=== PATIENT | male | born 1965 | race Caucasian/White ===

== ENCOUNTER 2017-09-27 05:26 | Emergency (ER) | payer OTHER ==
[~2017-09-27] VITALS: Ht 167.6 cm; Wt 59.0 kg
[~2017-09-27 05:26] MED LIST: ALBU90OI6 INH; AMOCLA500 PO; CEPH500 PO; CLON.1 PO; CLOT1TC TOP; DIAZ5 PO; DIPHENHYDRAMINE 25 MG; DULO30 PO; DULO60; ERGO50000 PO; FLUSAL1005 INH; GABA100 PO; GABA600 PO; HYDACE5 PO; IBUP800 PO; OMEP20ER PO; OXYACE5T PO; PANT20 PO; PRED10 PO; Prednisone20 MG PO; Robaxin-750750 MG PO; SULTRIDS PO; TIOT18 INH; TRAM50 PO; Ultram50 MG PO
[2017-09-27 06:16] LABS: BASOPHILS ABSOLUTE AUTO 0.11 K/mm3 (0.00-0.23); BASOPHILS PERCENT AUTO 0 % (0-2); EOSINOPHILS ABSOLUTE AUTO 0.01 K/mm3 (0.00-0.68); EOSINOPHILS PERCENT AUTO 0 % (0-6); Hematocrit 46.7 % (37.0-53.0); Hemoglobin 16.3 g/dL (13.5-17.5); IMMATURE GRAN ABSOLUTE AUTO 0.22 K/mm3 (0.00-0.10); IMMATURE GRAN PERCENT AUTO 1 % (0-1); LYMPHOCYTES ABSOLUTE AUTO 0.45 K/mm3 (0.84-5.20); LYMPHOCYTES PERCENT AUTO 2 % (21-46); MONOCYTES ABSOLUTE AUTO 1.36 K/mm3 (0.16-1.47); MONOCYTES PERCENT AUTO 5 % (4-13); Mean Corpuscular HGB Conc 34.9 g/dL (31.5-36.5); Mean Corpuscular Volume 97 fL (80-100); Mean Platelet Volume 9.3 fL (9.1-12.4); NEUTROPHILS ABSOLUTE AUTO 24.72 K/mm3 (1.96-9.15); NEUTROPHILS PERCENT AUTO 92 % (41-73); Platelet Count 217 K/mm3 (150-400); RDW Coefficient Variation 11.8 % (11.7-14.2); RDW Standard Deviation 42.7 fL (35.1-46.3); White Blood Cell Count 26.87 K/mm3 (4.00-11.30)
[2017-09-27 06:36] LABS: Alanine Aminotransfer (ALT/SGP 94 U/L (12-78); Albumin, Blood 3.2 g/dL (3.4-5.0); Albumin/Globulin Ratio 0.7 (0.8-1.8); Alk Phos 84 U/L (50-136); Anion Gap 12 mmol/L (6-16); Aspartate Aminotrans (AST/SGOT 95 U/L (12-37); Bilirubin, Total 0.8 mg/dL (0.1-1.0); Blood Urea Nitrogen 5 mg/dL (8-24); Bun/Creatinine Ratio 10.7 (12.0-20.0); CO2, Blood 25 mmol/L (21-32); Calcium, Blood 8.9 mg/dL (8.5-10.1); Chloride, Blood 92 mmol/L (98-108); Creatinine, Blood 0.47 mg/dL (0.60-1.20); Globulin, Blood 4.6 g/dL (2.2-4.0); Glomerular Filtration Rate >60 (60-); Glucose, Blood 88 mg/dL (70-99); Sodium, Blood 129 mmol/L (136-145); Total Protein, Blood 7.8 g/dL (6.4-8.2); Troponin I <0.015 ng/mL (0.000-0.040)
[2017-09-27] MEDS ORDERED: Zithromax250 MG PO (10:15)
== END 2017-09-27 10:38 | disposition home or self-care (01) ==
LOC: ER 05:26
PROVIDERS: Internal Medicine
DX: J44.0 Chronic obstructive pulmonary disease with (acute) lower respiratory infection (principal); J18.9 Pneumonia, unspecified organism; F17.210 Nicotine dependence, cigarettes, uncomplicated; Z91.02 Food additives allergy status; Z88.8 Allergy status to other drugs, medicaments and biological substances; Z88.6 Allergy status to analgesic agent; Z91.018 Allergy to other foods; Z79.899 Other long term (current) drug therapy
CPT/HCPCS: 36415; 71046; 71260; 80053; 84484; 85025; 85379; 93005; 93010; 94640; 96365; 96367; 96375; 99284; C9113; J0456; J0696; J3490; J7030; J7050; Q9967

== ENCOUNTER 2021-12-19 23:26 | Inpatient (IN) | payer OTHER ==
[~2021-12-19] VITALS: Ht 167.6 cm; Wt 47.0 kg
[~2021-12-19 23:26] MED LIST changes: +ALBU2.5V5 INH; +ALBU3IS INH; +ALBU90OI6; +ALBU90OI61 INH; +BUDE6HFA; +BUDE6HFA INH; +BUPR150ER; +BUPR150ER PO; +COMBIVENT RESPIM4 GM; +OLAN20; +OLAN20 PO; +OMEPRAZOLE20 M2 PO; +Prozac20 MG; +Prozac20 MG PO; +SPIRIVA RESPIMAT4 G1 INH; +Tessalon Perle100 MG PO; +Zithromax250 MG PO
[2021-12-20] LABS: BASOPHILS ABSOLUTE AUTO 0.04 K/mm3 (0.00-0.23); BASOPHILS PERCENT AUTO 1 % (0-2); EOSINOPHILS ABSOLUTE AUTO 0.02 K/mm3 (0.00-0.68); EOSINOPHILS PERCENT AUTO 0 % (0-6); Hematocrit 40.5 % (37.0-53.0); Hemoglobin 15.2 g/dL (13.5-17.5); Mean Corpuscular HGB 36.7 pg (26.0-34.0); Mean Corpuscular HGB Conc 37.5 g/dL (31.5-36.5); Mean Corpuscular Volume 98 fL (80-100); Mean Platelet Volume 10.5 fL (9.1-12.4); Platelet Count 188 K/mm3 (150-400); RDW Coefficient Variation 12.5 % (11.7-14.2); Red Blood Cell Count 4.14 M/mm3 (4.30-5.90); White Blood Cell Count 8.19 K/mm3 (4.00-11.30)
[2021-12-20 00:03] LABS: IMMATURE GRAN ABSOLUTE AUTO 0.09 K/mm3 (0.00-0.10); IMMATURE GRAN PERCENT AUTO 1 % (0-1); LYMPHOCYTES ABSOLUTE AUTO 0.64 K/mm3 (0.84-5.20); LYMPHOCYTES PERCENT AUTO 8 % (21-46); MONOCYTES ABSOLUTE AUTO 0.79 K/mm3 (0.16-1.47); MONOCYTES PERCENT AUTO 10 % (4-13); NEUTROPHILS ABSOLUTE AUTO 6.61 K/mm3 (1.96-9.15); NEUTROPHILS PERCENT AUTO 81 % (41-73)
[2021-12-20 00:18] LABS: Albumin, Blood 2.1 g/dL (3.4-5.0); Albumin/Globulin Ratio 0.4 (0.8-1.8); Bilirubin, Total 0.6 mg/dL (0.1-1.0); Bun/Creatinine Ratio 26.7 (12.0-20.0); Calcium, Blood 9.4 mg/dL (8.5-10.1); Creatinine, Blood 0.34 mg/dL (0.60-1.20); Globulin, Blood 5.2 g/dL (2.2-4.0); Total Protein, Blood 7.3 g/dL (6.4-8.2)
[2021-12-20 00:55] LABS: PCO2 Arterial 45.5 mmHg (35-45); pH Blood Arterial 7.45 (7.35-7.45)
[2021-12-20 02:06] LABS: PCO2 Arterial 51.5 mmHg (35-45); PO2 Arterial 118 mmHg (80-100)
[2021-12-20 03:50] LABS: Source, Urine Foley catheter
[2021-12-20 03:53] LABS: Bilirubin, Urine Neg (Neg); Blood, Urine Neg (Neg); Glucose Qualitative, Urine Neg (Neg); Ketones, Urine 3+ (Neg); Leukocyte Esterase, Urine Neg (Neg); Nitrite, Urine Neg (Neg); Protein, Urine 3+ (Neg); Specific Gravity, Urine 1.005 (1.003-1.022); Urobilinogen, Urine 1+ (Normal)
[2021-12-20 03:59] LABS: Appearance, Urine Clear (Clear); Color, Urine Yellow (P-Yellow)
[2021-12-20 04:00] LABS: Bacteria Not Seen /hpf; Red Blood Cells, Urine Not Seen /hpf (0-2); Squamous Epithelial Cells Not Seen /hpf (Few); White Blood Cells, Urine Rare /hpf (0-5)
--- NOTE | 2021-12-20 05:08 | NUR ---
ARRIVAL TO ICU PT ARRIVED TO ICU 12 AT 0220 VIA ED BED AND TRANSFERED OVER TO ICU BED VIA SLIDE SHEET. PT VERY SOMNULANT; PRN ATIVAN GIVEN ONE HOUR BEFORE ARRIVAL TO ICU; PT FOLLOWS DIRECTIONS VERY WEAKLY BUT HAS NOT ANSWERED Y/N QUESTIONS; EYES REMAIN CLOSED DURING ASSESSMENT. BIPAP IN PLACE WITH SETTINGS 17/8, FIO2 40%, Vt 380'S, RR CONT TO BE 30-40'S. HR 120'S. SBP 100-120'S. PT ARRIVED SOILED OF STOOL AND URINE; TEMP BAÑUELOS PLACED, UA SENT. SEE ADMISSION ASSESSMENT FOR FULL ASSESSMENT. PT TAKEN DOWN TO CT FOR A HEAD CT. THIS RN, RT, AND AN ADDITION RN WENT WITH PATIENT. NO ACUTE EVENTS DURING TRANSPORT.
--- NOTE | 2021-12-20 06:28 | NUR ---
END OF SHIFT SUMMARY NO ACUTE EVENTS SINCE LAST NOTE. PT CONT TO BE SOMNULENT WITH EYES CLOSED WHEN NOT STIMULATED; ORIENTED TO SELF AND PLACE; PT IS ONLY ABLE TO PROVIDE SHORT ANSWERS; VERBAL REMINDERS REGARDING KEEPING BIPAP MASK ON HELFPUL. CONT TO BE ON BIPAP 17/8, FIO2 30%; RR CONT TO BE 30-40'S. HR 110-120. SBP 100-120'S. BAÑUELOS IN PLACE WITH 550ML OUT SINCE BEING PLACED. WILL REPORT TO AM RN WHEN AVIALBLE.
[2021-12-20 06:50] LABS: Albumin, Blood 1.9 g/dL (3.4-5.0); Albumin/Globulin Ratio 0.4 (0.8-1.8); Bilirubin, Total 0.4 mg/dL (0.1-1.0); Bun/Creatinine Ratio 29.7 (12.0-20.0); Creatinine, Blood 0.34 mg/dL (0.60-1.20); Globulin, Blood 5.3 g/dL (2.2-4.0); Potassium, Blood 4.1 mmol/L (3.5-5.5); Total Protein, Blood 7.2 g/dL (6.4-8.2)
--- NOTE | 2021-12-20 07:00 | NUR ---
ASSUME CARE: I have assumed care of this patient. He is able to answer questions with one to two word answers. Pt is unable to provide family contact information. This RN showed pt a face sheet with old next of kin information. Pt agreed this information is up to date and verified that RN has permission to call number provided.
[2021-12-20 07:02] LABS: BASOPHILS ABSOLUTE AUTO 0.03 K/mm3 (0.00-0.23); BASOPHILS PERCENT AUTO 0 % (0-2); EOSINOPHILS PERCENT AUTO 0 % (0-6); Hematocrit 42.8 % (37.0-53.0); Hemoglobin 14.6 g/dL (13.5-17.5); IMMATURE GRAN ABSOLUTE AUTO 0.07 K/mm3 (0.00-0.10); IMMATURE GRAN PERCENT AUTO 1 % (0-1); LYMPHOCYTES PERCENT AUTO 4 % (21-46); MONOCYTES ABSOLUTE AUTO 0.16 K/mm3 (0.16-1.47); MONOCYTES PERCENT AUTO 2 % (4-13); Mean Corpuscular HGB 33.1 pg (26.0-34.0); Mean Corpuscular HGB Conc 34.1 g/dL (31.5-36.5); Mean Corpuscular Volume 97 fL (80-100); Mean Platelet Volume 10.1 fL (9.1-12.4); NEUTROPHILS ABSOLUTE AUTO 6.29 K/mm3 (1.96-9.15); NEUTROPHILS PERCENT AUTO 92 % (41-73); Platelet Count 184 K/mm3 (150-400); RDW Coefficient Variation 11.9 % (11.7-14.2); RDW Standard Deviation 42.7 fL (35.1-46.3); Red Blood Cell Count 4.41 M/mm3 (4.30-5.90); White Blood Cell Count 6.85 K/mm3 (4.00-11.30)
--- NOTE | 2021-12-20 09:35 | NUR ---
BIPAP MASK: Pt has self removed BIPAP mast x 2 this morning. His spO2 drops to mid 80's. RT notified for trial Airvo. Pt educated on importance of wearing mask; requires reinforcement.
--- NOTE | 2021-12-20 10:12 | NUR ---
UPDATE: Pt transitioned to Airvo 35L/min 30%. He is tolerating this well and is able to converse with RN a bit. When asked if he would like the hospital staff to do CPR if pt's heart were to stop, pt states "No". When asked if he would like a breathing tube if he were to stop breathing on the BIPAP, pt states "No". Pt also states that his emergency contact, Soraya, is his . This phone number provided was called with no answer. Dr Reinoso updated on all of this information.
--- NOTE | 2021-12-20 11:32 | NUR ---
UPDATE: Pt tells this RN, "I am a hardcore alcoholic." Last ETOH intake was 12/19/21. Pt states he normally drinks six 16oz beers daily. He has weaned down from [address] Reinoso notified. Telephone order for ETOH withdrawal orderset.
--- NOTE | 2021-12-20 12:02 | NUR ---
CASE CONFERENCE: Pt code status changed to DNR after telling his bedside RN Felicia "No" when she asked if he would want CPR and/or intubation. entertainment manager Trenton spoke to pt's s/o Soraya, who stated while she and pt have not discussed their thoughts or wishes surrounding code status, she does believe the pt would not want CPR or intubation. Dr. Reinoso given this information, and gives v/o to change code to DNR.
--- NOTE | 2021-12-20 18:02 | NUR ---
SHIFT SUMMARY: code status changed from full code to DNR today. Neuro: eyes open spontaneously. pt oriented to self and place consistantly. he requires frequent reorientation to situation. moving all extremities purposfully. CIWA initiated this afternoon; pt has received 2 mg of lorazapam. Last CIWA 7. Respiratory: weaned from BIPAP to Airvo 35 L/min 30% fio2. occasional wheezes noted, improve with neb treatments Cardiac: sinus tach to sinus rhythm. strong peripheral pulses GI/: pt NPO; speach therapy in to see pt today. Liquid BM this morning. Temp gonzales in place; 450ml uop this shift. Skin: non-blanchable redness noted to coccyx; photo obtained and mepilex dressing placed. skin tear also noted to left elbow. Power glide placed to right upper arm. Psych/Social: pt mildly anxious. he has spoken to his significant other whom his calls his several times today via his cell phone. SO called RN for update as well.
[2021-12-20] MEDS ORDERED: FLUT1DIS5 (18:20)
[2021-12-20] MEDS ORDERED: OLAN5 PO (18:21)
[2021-12-20] MEDS ORDERED: ANORO ELLIPTA1 EACH INH (18:26)
--- NOTE | 2021-12-20 21:36 | NUR ---
ASSUMED CARE AT 1900 PT S.O. IN ROOM AT SHIFT CHANGE BUT DID NOT STAY VERY LONG. PT LAYING IN BED WATCHING TV. PT IS MORE ALERT THAN PREVIOUS DAY; PT IS ABLE TO ANSWER QUESTIONS APPROPRIATLY, CHALLENGING TO KEEP HIS ATTENTION WHILE THE TV IS ON; DOES NOT MAKE EYE CONTACT WITH RN AND HAS A FLAT AFFECT; ORIENTED TO SELF, PLACE, FAMILY, SITUATION AND FOLLOWS DIRECTIONS. CURRENT CIWA SCORE 5. CURRENTLY ON AIRVO AT 35L, FIO2 30%; PT STATES THAT THE CANNULA CAN BE UNCOMFORATBLE AND WILL TAKE IT OFF, WHEN PT DID THAT HE DESATURATED TO THE LOW 80'S; WORKING WITH RT TO FIND A SOLUTION; EDUCATED PT ON HOW IMPORTANT IT IS TO KEEP CANNULA ON. HR 90'S, SINUS. SBP 120'S. BAÑUELOS IN PLACE AND DRAINING TO GRAVITY. LR INFUSING AT 125ML/HR. SEE SHIFT ASSESSMENT FOR FULL ASSESSMENT.
--- NOTE | 2021-12-21 04:48 | NUR ---
UPDATE PT WOKE HIMSELF UP IN A COUGHING EPISODE AND CONTINUES TO BE IN COUGHING EPISODE FOR OVER 30MIN, COUGHING STARTED OUT VERY WET AND IS NOW A DRY COUGH. PT WAS SAT UP, ORAL CARE DONE WITH SUCTION, PRN ATIVAN GIVEN AND THIS WAS NOT HELPFUL. HR INCREASED TO THE 140-150'S, BP ELEVATED 151/122, AND PT DESATURATING. RT TO ROOM AND PLACED PT ON BIPAP. DR CHO NOTIFIED OF COUGHING EPISODE AND ORDERED MORPHINE NEB. COUGHING HAS SLOWED DOWN SINCE MORPHINE NEB, HR STILL ELEVATED AT 124.
--- NOTE | 2021-12-21 06:26 | NUR ---
END OF SHIFT SUMMARY SINCE LAST NOTE, THE COUGHING EPISODE HAS STOPPED, CONT TO BE ON BIPAP 15/, FIO2 50%, SPO2 LOW 90'S, PT WILL TOUCH AND REMOVE MASK AND TRY TO ITCH HIS NOSE, PT REMINDED TO LEAVE MASK ON AND EDUCATED ON IMPORTANCE OF BIPAP MASK, RN HELPED PT ITCH NOSE. PT LESS ALERT AFTER COUGING EPISODE, CAN STILL ANSWER QUESTIONS APPROPRIATLY; CIWA SCORES 4-7. HR 80'S, SBP 100-120. BAÑUELOS IN PLACE WITH 350ML OUTPUT. LR INFUSING AT 125ML/HR. WILL REPORT TO AM RN WHEN AVAILABLE.
--- NOTE | 2021-12-21 17:24 | NUR ---
SHIFT SUMMARY PT HAS REMAINED AWAKE MOST OF THIS AFTERNOON. PT ABLE TO FOLLOW SIMPLE COMMANDS, BUT IS FORGETFUL. PT WITH FREQUENT REORIENTATION NEEDED REGARDING PLAN OF CARE AND NPO STATUS PER SPEECH THERAPY. PT HAS REMAINED ON AIRVO 30L, FIO2 45% MOST OF THE SHIFT. VITAL SIGNS HAVE REMAINED STABLE. PG IN PLACE WITH LR INFUSING AT 125 ML/HR. BAÑUELOS TEMP PROBE REMAINS IN PLACE WITH YELLOW URINE OUTPUT NOTED THIS SHIFT. PT ABLE TO SHIFT SELF IN BED FOR COMFORT. PT FAMILY AT BEDSIDE THIS AFTERNOON AND UPDATED TO PT CONDITION AND PLAN OF CARE. PT VOICES FRUSTRATION ABOUT NPO STATUS AND WANTING TO EAT. SPEECH THERAPY PLANS FOR A REEVALUATION TOMORROW. WILL CONTINUE TO MONITOR AND REPORT OFF TO ONCOMING RN.
--- NOTE | 2021-12-21 20:02 | NUR ---
ASSUMED CARE OF GELY, HE IS APPROPRIATE AND SAYS HE FEELS LIKE HE IS BEGINNING THE STAGES OF WITHDRAWAL. CIWA 11, ATIVAN GIVEN PER HIS REQUEST. LUNGS WITH EXPIRATORY WHEEZE, COUGH PRESENT, AIRVO 30L/45%. LR @ 125ML/HR. PT REPOSITIONED WITH ASSIST FROM PERRY MARTINES. PT VERY CACHECTIC, STATES HE IS HUNGRY HYPOACTIVE BOWEL SOUNDS, BAÑUELOS TO GRAVITY DRAINAGE. ORAL CARE DONE.
--- NOTE | 2021-12-22 00:40 | NUR ---
GELY HAS PULLED OFF HIS AIRVO NC AND HIS FINGER PROBE SINCE THE SECOND DOSE OF ATIVAN, HE HAS NOT SLEPT. HE KNOWS HE IS AT [facility], HE IS HERE BECAUSE "OF HIS COPD", HE IS COOPERATIVE, BUT PLEASANTLY DISORIENTED. HE CONTINUES WITH A WET COUGH, NON PRODUCTIVE, AFEBRILE WITH THE FAN AT THE BEDSIDE. AIRVO 30L/ 30%.
--- NOTE | 2021-12-22 05:56 | NUR ---
GELY WAS FINALLY ABLE TO FALL ASLEEP AROUND 0300, HE HAS BEEN TURNED Q2 AND DID NOT AWAKEN. HE CONTINUES ON AIRVO 30L/35% WITH SATS REMAINING AROUND 94%. HEART RATE, BLOOD PRESSURE REMAIN STABLE. GOOD URINE OUTPUT. NO OTHER CHANGES THIS SHIFT.
--- NOTE | 2021-12-22 17:28 | NUR ---
SHIFT SUMMARY NO ACUTE CHANGES THIS SHIFT. PT HAS REMAINED AWAKE, ALERT, AND ORIENTED THROUGHOUT THE DAY. PT HAS DENIED PAIN OR DISCOMFORT. PT REMAINS ON HIFLOW NC AT 30L, FIO2 30%. VITAL SIGNS HAVE REMAINED STABLE, SPO2 >90%. LR INFUSING AT 125 ML/HR. BAÑUELOS TEMP PROBE REMAINS IN PLACE WITH LARGE VOLUME OF CLEAR YELLOW URINE OUTPUT THIS SHIFT. PT TOLERATING SMALL AMOUNTS OF PO INTAKE WELL. FAMILY AT BEDSIDE FOR SHORT PERIOD OF TIME THIS AFTERNOON. WILL CONTINUE TO MONITOR AND REPORT OFF TO ONCOMING RN.
--- NOTE | 2021-12-22 21:07 | NUR ---
ASSUMED CARE OF GELY AT 1900, HE REQUESTS ASSISTANCE WITH HIS PILLOW. ASSERTS THAT HE IS AN ALCOHOLIC AND WILL NEED MEDICATION, DISCUSSED THAT LAST EVENING WE TALKED ABOUT THAT AND HE HAD A DELAYED RESPONSE TO THE MEDICATION, HE AGREED THAT HE WOULD LIKE IT AGAIN. HE IS COOPERATIVE AND WITHOUT ANY NEEDS. EDDA CLEAR YELLOW DRAINING IN THE TUBING. WATCHING TELEVISION, AIRVO 30L/30%.
--- NOTE | 2021-12-23 01:08 | NUR ---
GELY HAS BEEN SLEEPING ON AND OFF SINCE AROUND 2300, HE WAS AWAKENED FOR HIS BREATHING TREATMENT, THE TREATMENT ILLICITED SOME COUGHING WHICH BROUGHT HIS OVERALL SATS DOWN TO HI-MID 80S, AWAKENED AND REPOSITIONED WITH GOOD RESULTS OF SATS 93% AND LESS COUGHING. BAÑUELOS CONTINUES DRAINING TO GRAVITY, CLEAR YELLOW. NO FURTHER CHANGES AT THIS TIME.
--- NOTE | 2021-12-23 01:53 | NUR ---
REPORT CALLED TO DAHIANA PERES ON PCU. TRANSFERRING PATIENT.
--- NOTE | 2021-12-23 02:19 | NUR ---
RECEIVED HAND OFF FROM Janes GALEANA RN USING SBAR. TRANSPORTED TO ROOM PCU7 VIA ICU BED. TRANSFERED TO PCU BED USING SLIDDER SHEET, LIFT SHEET, AND FULL STAFF ASSISTANCE, TOLERATED WELL. AAO X3, VERY LETHARGIC WITH MOVMENTS, BUT IS ABLE TO FOLLOW COMMANDS. ORIENTED TO NEW ROOM, CALL SYSTEM, AND POC, VOICES UNDERSTANDING. RESPIRATIONS EVEN AND LABORED ON AIRVO AT 30L/30% FIO2. LUNG SOUND DIMINSHED ON RIGHT AND COARSE ON LEFT. DENIES CP OR SOB. REPORTEDLY DESATS WHEN HE COUGHS AFTER WAKING UP, STATES HE HAD JUST QUIT SMOKING. ABDOMEN FLAT WITH BOWEL TONES NOTED IN ALL QUADS. UNABLE TO RECALL LAST BM. SKIN BREAKDOWN TO COCCYX WITH MEPILEX IN PLACE. MEPILEX HEEL PROTECTORS IN PLACE BILATERALLY. WATER AND CALLBELL/TV REMOTE PROVIDED WITHIN REACH. CELLPHONE PLACED ON MODERATE NEEDS TEACHER AND PUT ON CORNER OF OVER THE BED TABLE. DENIES FURTHER NEEDS OR WANTS AT THIS TIME. SAFETY MEASURES IN PLACE. WILL CONTINUE TO MONITOR AND ADDRESS NEEDS THEY ARISE.
--- NOTE | 2021-12-23 05:34 | NUR ---
SHIFT SUMMARY LYING IN SEMI FOWLERS WITH EYES CLOSED. AAO X3, VERY LETHARGIC WITH MOVMENTS, BUT IS ABLE TO FOLLOW COMMANDS. RESPIRATIONS EVEN AND LABORED ON AIRVO AT 30L/30% FIO2. LUNG SOUND DIMINSHED ON RIGHT AND COARSE ON LEFT. DENIES CP OR SOB. ABDOMEN FLAT WITH BOWEL TONES NOTED IN ALL QUADS. UNABLE TO RECALL LAST BM. SKIN BREAKDOWN TO COCCYX WITH MEPILEX IN PLACE. MEPILEX HEEL PROTECTORS IN PLACE BILATERALLY. CALL HO WITHIN REACH. DENIES FURTHER NEEDS OR WANTS AT THIS TIME. SAFETY MEASURES IN PLACE. WILL CONTINUE TO MONITOR AND ADDRESS NEEDS THEY ARISE. WILL GIVE HAND OFF TO ONCOMING SHIFT USING SBAR.
--- NOTE | 2021-12-23 18:27 | NUR ---
SHIFT SUMMARY ASSUMED CARE AT 0700. A/A/OX3 WITH INTERMITANT CONFUSION, SLOW TO FOLLOW COMMANDS AT TIMES. L/S WHEEZE ON RIGHT AND BEGINNING OF SHIFT. 10L 02 WITH HIFLO CANNUAL TO MAINTAIN SATS OF 95%. INDEPENDANT WITH SELF REPOSITIONING AND FEEDING. NO ACUTE MEDICAL CHANGES DURING SHIFT. VSS, WILL CONTINUE TO MONITOR AND TREAT UNTIL CHANGE OF SHIFT.
--- NOTE | 2021-12-24 06:14 | NUR ---
SHIFT SUMMARY Assumed care of pt at 1900. A/Ox4, slow to respond, may be slight AUGUSTINE. Reports no pain, CP/pressure. Cachectic in appearance and weakness t/o. CIWA this shift ranged from 0-9, only needing to be medicated once. Pt maintains 94-97% on 7L NC, titrated as tolerated to 1.5L and maintaining above 95%. LS clear on top and wheeze at bases. Occasional moist cough bringing up scant thick green sputum. SR on tele 80's, strong +2 radial and pedal pulses bl. Temp gonzales draining to gravity large amounts of clear/yellow urine. Skin is very dry and flaky. Excess flaking on scalp. Coccyx redness. Q2 turns implemented. New mepilex's applied to coccyx and heels. Patient has flat affect, but cooperative with care. Patient expressed interest in going to treatment after here, as he has yet to be sober. Has gone to treatment in the past but "faked being sober" for the 13 weeks. Will report to nikole [facility].
--- NOTE | 2021-12-24 17:09 | NUR ---
SHIFT SUMMARY PT HAS BEEN COOPERATIVE WITH ALL CARES AND HAS ACTIVELY PARTICIPATED IN CARE BY ASKING QUESTIONS AND OFFERING PREFERENCES. PT WAS MOTIVATED TO WORK WITH PHYSICAL THERAPY AND STATED THAT THEY FELT "REALLY GOOD" AFTER. PT HAD AN EPISODE OF DESATURATION WHILE EATING LUNCH, SPO2 FELL TO 86%, OXYGEN WAS TITRATED TO 5L DURING MEAL TO ALLOW PT TO RECOVER AND WAS THEN RETURNED TO 2L. PT WAS ADVANCED TO A MECHANICAL SOFT DIET AND EXPRESSED FABIANA OVER "FINALLY GETTING SOLID FOODS." PT DENIED C/O PAIN OR DISCOMFORT AND HAS BEEN ABLE TO REPOSITION SELF IN BED WITHOUT ASSISTANCE.
--- NOTE | 2021-12-24 18:38 | NUR ---
TRANSFERRED FROM PCU Pt AO, able to make needs known. Pt able to stand pivot to bed from W/C without assist. Sats stable on 2.5lpm, no SOB observed. COVID/droplet precautions initiated.
[2021-12-25 05:19] LABS: Bun/Creatinine Ratio 30.7 (12.0-20.0); Calcium, Blood 8.8 mg/dL (8.5-10.1); Creatinine, Blood 0.39 mg/dL (0.60-1.20); Potassium, Blood 3.8 mmol/L (3.5-5.5)
--- NOTE | 2021-12-25 05:50 | NUR ---
SHIFT SUMMARY NOC: PT ALERT AND ORIENTATED, SBA TO BATHROOM. AT BEDTIME PT STATED HE HAD HEADACHE, ANXIETY, MILD NAUSEA, SEEING BLURRY/FUZZY SHAPES, AND HE WAS DIAPHORETIC, CIWA 15. ATIVAN 1 MG IV GIVEN WITH POSITIVE RESULTS. PT SLEPT ALL NIGHT. MORNING CIWA 7. PT TITRATED DOWN TO 1L ABIGAIL. BAÑUELOS IN PLACE. FLUIDS RUNNING.
--- NOTE | 2021-12-25 18:07 | NUR ---
SHIFT SUMMARY- PT HAD AN EPISODE OF LOW O2 SATS. PT NOW ON 3L VIA NC AND WAS PLACED ON CONT BIOX. PT HAS BEEN HAVING ETOH WITHDRAWLS T/O THE SHIFT AND HAS RECIEVED MEDICATIONS FOR THAT. DR STARTED Q6WA LIBRIUM TODAY WELL GABAPENTIN. SEE EMAR FOR MORE DETAILS. PT CURRENTLY SITTING UP IN BED, CALL LIGHT IN REACH, HE IS IMPULSIVE AND WITH THE MEDICATIONS HE HAS RECIEVED A BED ALARM IS NEEDED. PT HAS A BAÑUELOS CATH IN PLACE, ORDER RECIEVED FOR BLADDER TRAINING THAT WAS INITIATED AT 1530 AT 1730 PT HAD THE URGE TO GO AND WAS UNCLAMPED (450ML OUT) RECLAMPED AFTER WILL UNCLAMP AFTER REPORT AND DC BAÑUELOS IF PT HAS SENSATION TO GO AGAIN. WILL PASS ALL ON IN REPORT TO NIGHT RN.
[2021-12-26 05:00] LABS: Bun/Creatinine Ratio 38.9 (12.0-20.0); Calcium, Blood 9.2 mg/dL (8.5-10.1); Creatinine, Blood 0.44 mg/dL (0.60-1.20); Magnesium, Blood 2.1 mg/dL (1.6-2.4); Phosphorus, Blood 4.3 mg/dL (2.5-4.9); Potassium, Blood 4.1 mmol/L (3.5-5.5)
--- NOTE | 2021-12-26 05:55 | NUR ---
SHIFT SUMMARY NOC: PT CIWA 5-13 ON NOC SHIFT. ATIVAN 1MG IV GIVEN TWICE ALONG WITH LIBRIUM PO PER PRN ORDERS. PT DESCRIBES HEADACHE, DIAPHORETIC, TREMORS, VISUAL HALLUCINATIONS "FUZZY THINGS". EDDA GUTIERREZ'D. PT VOIDING IN URINAL, CLEAR YELLOW NO ODOR.
[2021-12-26] MEDS ORDERED: Acetaminophen325 M1 PO (16:44)
[2021-12-26] MEDS ORDERED: DECADRON6 M1 PO (16:45)
[2021-12-26] MEDS ORDERED: GABA300 PO (16:46)
--- NOTE | 2021-12-26 19:31 | NUR ---
DISCHARGE NOTE- PT AND SPOUSE WERE GIVEN VERBAL AND WRITTEN DISCHARGE INSTRUCTIONS AND ACKNOWLEDGED UNDERSTANDING OF THEM. PT IV ACCESS DC'D PRIOR TO DISCHARGE HAIR WAS WASHED AND FEET WERE CLEANED PRIOR TO DRESSING FOR HOME. PT WAS ESCORTED OUT VIA WC WHILE ON 4L O2 VIA NC. PT WALKER AND PORTABLE O2 TANK WERE DELIVERED PRIOR TO DISCHARGE AND PT TOOK THEM WITH HIM. NO S&S OF DISTRESS NOTED AT THE TIME OF DISCHARGE.
== END 2021-12-26 18:57 | disposition home health service (06) | DRG 177 ==
LOC: ER 23:26 → ICUW 12-20 01:45 → PCU 12-23 02:17 → MEDS 12-24 18:26
PROVIDERS: Internal Medicine; Physician Assistant; Student in an Organized Health Care Education/Training Program; ADMIT Family Medicine
PROC: XW033H6 Introduction of Other New Technology Monoclonal Antibody into Peripheral Vein, Percutaneous Approach, New Technology Group 6 (ICD-10-PCS; 2021-12-19)
PROC: XW033E5 Introduction of Remdesivir Anti-infective into Peripheral Vein, Percutaneous Approach, New Technology Group 5 (ICD-10-PCS; principal; 2021-12-20)
PROC: 3E0333Z Introduction of Anti-inflammatory into Peripheral Vein, Percutaneous Approach (ICD-10-PCS; 2021-12-20)
PROC: XW0DXM6 Introduction of Baricitinib into Mouth and Pharynx, External Approach, New Technology Group 6 (ICD-10-PCS; 2021-12-20)
PROC: 8E0ZXY6 Isolation (ICD-10-PCS; 2021-12-20)
PROC: 3E03329 Introduction of Other Anti-infective into Peripheral Vein, Percutaneous Approach (ICD-10-PCS; 2021-12-20)
PROC: 5A0945A Assistance with Respiratory Ventilation, 24-96 Consecutive Hours, High Flow/Velocity Cannula (ICD-10-PCS; 2021-12-21)
PROC: 5A09357 Assistance with Respiratory Ventilation, Less than 24 Consecutive Hours, Continuous Positive Airway Pressure (ICD-10-PCS; 2021-12-23)
DX: U07.1 COVID-19 (principal); J12.82 Pneumonia due to coronavirus disease 2019; J96.01 Acute respiratory failure with hypoxia; E43 Unspecified severe protein-calorie malnutrition; G92.8 Other toxic encephalopathy; F10.239 Alcohol dependence with withdrawal, unspecified; E87.1 Hypo-osmolality and hyponatremia; Z68.1 Body mass index [BMI] 19.9 or less, adult; J96.12 Chronic respiratory failure with hypercapnia; J44.0 Chronic obstructive pulmonary disease with (acute) lower respiratory infection; R64 Cachexia; F41.9 Anxiety disorder, unspecified; F31.9 Bipolar disorder, unspecified; M54.9 Dorsalgia, unspecified; G89.29 Other chronic pain; G47.30 Sleep apnea, unspecified; M19.09 Primary osteoarthritis, other specified site; F17.210 Nicotine dependence, cigarettes, uncomplicated; F12.90 Cannabis use, unspecified, uncomplicated; R40.4 Transient alteration of awareness; R13.19 Other dysphagia; E88.09 Other disorders of plasma-protein metabolism, not elsewhere classified; Z87.81 Personal history of (healed) traumatic fracture; Z87.19 Personal history of other diseases of the digestive system; Z98.890 Other specified postprocedural states; Z79.51 Long term (current) use of inhaled steroids; Z79.899 Other long term (current) drug therapy; Z79.52 Long term (current) use of systemic steroids; Z88.8 Allergy status to other drugs, medicaments and biological substances; Z91.018 Allergy to other foods; Z91.09 Other allergy status, other than to drugs and biological substances; Z88.6 Allergy status to analgesic agent; Z23 Encounter for immunization
CPT/HCPCS: 36415; 36600; 51702; 70450; 71045; 71260; 80048; 80053; 81001; 82803; 83605; 83735; 83880; 84100; 84145; 84484; 85025; 87040; 92526; 92610; 93005; 93010; 94640; 94644; 94660; 94664; 94760; 94761; 94762; 96365; 96375; 97110; 97116; 97162; 97530; 99285-25; A9270; C1751; C9399; J0248; J0456; J0696; J1100; J1650; J2060; J2270; J2930; J3411; J3475; J7050; J7120; M0222; Q9967

== ENCOUNTER 2022-01-09 22:59 | Emergency (ER) | payer OTHER ==
[~2022-01-09] VITALS: Ht 167.6 cm; Wt 49.9 kg
[~2022-01-09 22:59] MED LIST changes: +ANORO ELLIPTA1 EACH INH; +Acetaminophen325 M1 PO; +DECADRON6 M1 PO; +FLUT1DIS5; +GABA300 PO; +OLAN5 PO
[2022-01-10 01:40] LABS: Alanine Aminotransfer (ALT/SGP 43 U/L (12-78); Albumin, Blood 2.8 g/dL (3.4-5.0); Albumin/Globulin Ratio 0.6 (0.8-1.8); Alk Phos 107 U/L (50-136); Anion Gap 7 mmol/L (6-16); Aspartate Aminotrans (AST/SGOT 51 U/L (12-37); Bilirubin, Total 0.3 mg/dL (0.1-1.0); Blood Urea Nitrogen 6 mg/dL (8-24); Bun/Creatinine Ratio 10.1 (12.0-20.0); CO2, Blood 25 mmol/L (21-32); Calcium, Blood 9.1 mg/dL (8.5-10.1); Chloride, Blood 104 mmol/L (98-108); Ethanol (Alcohol), Blood, Med <3 mg/dL; Globulin, Blood 4.6 g/dL (2.2-4.0); Glomerular Filtration Rate 114 (60-); Glucose, Blood 150 mg/dL (70-99); Potassium, Blood 4.6 mmol/L (3.5-5.5); Sodium, Blood 136 mmol/L (136-145); Total Protein, Blood 7.4 g/dL (6.4-8.2)
[2022-01-10 01:57] LABS: BASOPHILS ABSOLUTE AUTO 0.08 K/mm3 (0.00-0.23); BASOPHILS PERCENT AUTO 0 % (0-2); EOSINOPHILS ABSOLUTE AUTO 0.07 K/mm3 (0.00-0.68); EOSINOPHILS PERCENT AUTO 0 % (0-6); Hematocrit 35.6 % (37.0-53.0); Hemoglobin 11.6 g/dL (13.5-17.5); IMMATURE GRAN ABSOLUTE AUTO 0.21 K/mm3 (0.00-0.10); IMMATURE GRAN PERCENT AUTO 1 % (0-1); LYMPHOCYTES ABSOLUTE AUTO 0.63 K/mm3 (0.84-5.20); LYMPHOCYTES PERCENT AUTO 4 % (21-46); MONOCYTES PERCENT AUTO 7 % (4-13); Mean Corpuscular HGB 33.1 pg (26.0-34.0); Mean Corpuscular HGB Conc 32.6 g/dL (31.5-36.5); Mean Corpuscular Volume 102 fL (80-100); Mean Platelet Volume 9.6 fL (9.1-12.4); NEUTROPHILS ABSOLUTE AUTO 15.69 K/mm3 (1.96-9.15); NEUTROPHILS PERCENT AUTO 88 % (41-73); Platelet Count 265 K/mm3 (150-400); RDW Coefficient Variation 13.2 % (11.7-14.2); RDW Standard Deviation 49.4 fL (35.1-46.3); White Blood Cell Count 17.88 K/mm3 (4.00-11.30)
[2022-01-10 02:05] LABS: Influenza A, PCR NEGATIVE (NEGATIVE); Influenza B, PCR NEGATIVE (NEGATIVE); Resp Syncytial Virus, PCR NEGATIVE (NEGATIVE); SARS-Cov-2 (COVID-19) PCR, MMC NEGATIVE (NEGATIVE)
[2022-01-10 03:35] LABS: Source, Urine Straight Cath
[2022-01-10 03:37] LABS: Bilirubin, Urine Neg (Neg); Blood, Urine Neg (Neg); Glucose Qualitative, Urine Neg (Neg); Ketones, Urine Neg (Neg); Leukocyte Esterase, Urine Neg (Neg); Nitrite, Urine Neg (Neg); Protein, Urine 1+ (Neg); Specific Gravity, Urine 1.015 (1.003-1.022); Urobilinogen, Urine NORM (Normal)
[2022-01-10 03:39] LABS: Appearance, Urine Clear (Clear); Color, Urine Yellow (P-Yellow)
[2022-01-10 03:50] LABS: U Amphetamine Screen Not Detected; U Barbituate Screen Not Detected; U Benzodiazapine Screen DETECTED; U Buprenorphine Screen Not Detected; U Cannabinoids Screen DETECTED; U Cocaine Screen Not Detected; U Methadone Screen Not Detected; U Methamphetamine Screen Not Detected; U Opiates Screen Not Detected; U Oxycodone Screen Not Detected; U Phencyclidine Screen Not Detected; U Propoxyphene Screen Not Detected
== END 2022-01-10 08:52 | disposition home or self-care (01) ==
LOC: ER 22:59
PROVIDERS: Student in an Organized Health Care Education/Training Program
DX: R53.1 Weakness (principal); R41.82 Altered mental status, unspecified; J43.9 Emphysema, unspecified; Z20.822 Contact with and (suspected) exposure to COVID-19; F17.210 Nicotine dependence, cigarettes, uncomplicated; Z88.6 Allergy status to analgesic agent; Z91.048 Other nonmedicinal substance allergy status; Z88.8 Allergy status to other drugs, medicaments and biological substances; Z79.899 Other long term (current) drug therapy
CPT/HCPCS: 0241U; 36415; 71045; 80053; 83605; 83690; 85025; 93005; 93010; 96360; 99285-25; G0480; J7030

== ENCOUNTER → 2023-08-12 | Outpatient (CLI) | payer OTHER ==
[2023-08-12 12:46] LABS: Hematocrit 43.3 % (37.0-53.0); Hemoglobin 15.8 g/dL (13.5-17.5); Mean Corpuscular HGB 35.4 pg (26.0-34.0); Mean Corpuscular HGB Conc 36.5 g/dL (31.5-36.5); Mean Corpuscular Volume 97 fL (80-100); Mean Platelet Volume 10.1 fL (9.1-12.4); Platelet Count 146 K/mm3 (150-400); RDW Coefficient Variation 11.3 % (11.7-14.2); RDW Standard Deviation 40.6 fL (35.1-46.3); Red Blood Cell Count 4.46 M/mm3 (4.30-5.90); White Blood Cell Count 8.48 K/mm3 (4.00-11.30)
[2023-08-12 13:20] LABS: BAND PERCENT MAN 2 % (0-8); BASOPHILS PERCENT MAN 0 % (0-2); EOSINOPHILS PERCENT MAN 0 % (0-6); LYMPHOCYTES ABSOLUTE MAN 0.59 K/mm3 (0.84-5.20); LYMPHOCYTES PERCENT MAN 7 % (21-46); MONOCYTES ABSOLUTE MAN 0.59 K/mm3 (0.16-1.47); MONOCYTES PERCENT MAN 7 % (4-13); NEUTROPHILS ABSOLUTE MAN 7.29 K/mm3 (1.96-9.15); SEG NEUTROPHILS PERCENT MAN 84 % (41-73); TOTAL CELLS COUNTED 100
[2023-08-13 20:07] LABS: A/G RATIO 1.2 (1.2-2.2); ALKALINE PHOSPHATASE, S 73 IU/L (44-121); ALT (SGPT) 37 IU/L (0-44); AST (SGOT) 83 IU/L (0-40); BILIRUBIN, TOTAL 0.9 mg/dL (0.0-1.2); BUN 13 mg/dL (6-24); BUN/CREATININE RATIO 22 (9-20); CALCIUM, SERUM 9.3 mg/dL (8.7-10.2); CARBON DIOXIDE, TOTAL 17 mmol/L (20-29); CHLORIDE, SERUM 85 mmol/L (96-106); GLOBULIN, TOTAL 3.3 g/dL (1.5-4.5); GLUCOSE, SERUM 121 mg/dL (70-99); POTASSIUM, SERUM 3.3 mmol/L (3.5-5.2); PROTEIN, TOTAL, SERUM 7.1 g/dL (6.0-8.5); SODIUM, SERUM 128 mmol/L (134-144)
[2023-08-14 00:08] LABS: BILIRUBIN, DIRECT 0.27 mg/dL (0.00-0.40)
== END ==
LOC: LAB 11:01 → LAB SHORT 11:01
PROVIDERS: Nurse Practitioner
DX: K52.9 Noninfective gastroenteritis and colitis, unspecified (principal); R52 Pain, unspecified; R63.0 Anorexia
CPT/HCPCS: 80053; 80076; 85007; 85027

== ENCOUNTER 2023-12-31 21:51 | Emergency (ER) | payer OTHER ==
[~2023-12-31] VITALS: Ht 167.6 cm; Wt 48.1 kg
[2023-12-31 22:29] LABS: BASOPHILS ABSOLUTE AUTO 0.08 K/mm3 (0.00-0.23); BASOPHILS PERCENT AUTO 1 % (0-2); EOSINOPHILS ABSOLUTE AUTO 0.11 K/mm3 (0.00-0.68); EOSINOPHILS PERCENT AUTO 2 % (0-6); Hematocrit 41.5 % (37.0-53.0); Hemoglobin 14.2 g/dL (13.5-17.5); IMMATURE GRAN ABSOLUTE AUTO 0.05 K/mm3 (0.00-0.10); IMMATURE GRAN PERCENT AUTO 1 % (0-1); LYMPHOCYTES ABSOLUTE AUTO 0.88 K/mm3 (0.84-5.20); LYMPHOCYTES PERCENT AUTO 13 % (21-46); MONOCYTES ABSOLUTE AUTO 0.63 K/mm3 (0.16-1.47); MONOCYTES PERCENT AUTO 10 % (4-13); Mean Corpuscular HGB 32.4 pg (26.0-34.0); Mean Corpuscular HGB Conc 34.2 g/dL (31.5-36.5); Mean Corpuscular Volume 95 fL (80-100); Mean Platelet Volume 8.6 fL (9.1-12.4); NEUTROPHILS PERCENT AUTO 74 % (41-73); Platelet Count 283 K/mm3 (150-400); RDW Coefficient Variation 11.8 % (11.7-14.2); RDW Standard Deviation 41.4 fL (35.1-46.3); Red Blood Cell Count 4.38 M/mm3 (4.30-5.90); White Blood Cell Count 6.65 K/mm3 (4.00-11.30)
[2023-12-31 22:30] VITALS: BP 121/89
[2023-12-31 22:48] LABS: Albumin, Blood 2.8 g/dL (3.4-5.0); Albumin/Globulin Ratio 0.5 (0.8-1.8); Bilirubin, Total 0.3 mg/dL (0.1-1.0); Bun/Creatinine Ratio 9.4 (12.0-20.0); Calcium, Blood 9.4 mg/dL (8.5-10.1); Creatinine, Blood 0.42 mg/dL (0.60-1.20); Globulin, Blood 5.1 g/dL (2.2-4.0); Total Protein, Blood 7.9 g/dL (6.4-8.2)
[2024-01-01 00:22] LABS: Base Excess Venous 6.6 mmol/L; PCO2 Venous 52.8 mmHg (38-42); pH Blood Venous 7.39 (7.34-7.37)
[2024-01-01] MEDS ORDERED: Ipratropium/Albuterol SulF 2.5-0.5MG/3 ML Amp INH ONE (00:25)
== END 2024-01-01 03:36 | disposition home or self-care (01) ==
LOC: ER 21:51
PROVIDERS: Student in an Organized Health Care Education/Training Program
DX: C34.32 Malignant neoplasm of lower lobe, left bronchus or lung (principal); J43.9 Emphysema, unspecified; F17.210 Nicotine dependence, cigarettes, uncomplicated; Z99.81 Dependence on supplemental oxygen; Z88.6 Allergy status to analgesic agent; Z88.8 Allergy status to other drugs, medicaments and biological substances; Z91.018 Allergy to other foods; Z91.048 Other nonmedicinal substance allergy status; Z79.899 Other long term (current) drug therapy
CPT/HCPCS: 71046; 71260; 80053; 82803; 83880; 84484; 85025; 93005; 93010; 94640; 94664; 99285-25; Q9967

== ENCOUNTER 2024-04-24 00:40 | Inpatient (IN) | payer OTHER ==
[~2024-04-24] VITALS: Ht 172.7 cm; Wt 38.1 kg
[~2024-04-24 00:40] MED LIST changes: -OLAN5 PO; +OLANZAPINE PO
[2024-04-24] MEDS ORDERED: Albuterol 2.5 MG/3 ML VIAL INH SCH (00:50)
[2024-04-24 01:23] LABS: Hematocrit 37.9 % (37.0-53.0); Hemoglobin 13.6 g/dL (13.5-17.5); Mean Corpuscular HGB 31.5 pg (26.0-34.0); Mean Corpuscular HGB Conc 35.9 g/dL (31.5-36.5); Mean Corpuscular Volume 88 fL (80-100); Mean Platelet Volume 8.3 fL (9.1-12.4); Platelet Count 427 K/mm3 (150-400); RDW Coefficient Variation 12.3 % (11.7-14.2); RDW Standard Deviation 39.8 fL (35.1-46.3); Red Blood Cell Count 4.32 M/mm3 (4.30-5.90); White Blood Cell Count 11.02 K/mm3 (4.00-11.30)
[2024-04-24 01:43] LABS: Magnesium, Blood 1.5 mg/dL (1.6-2.4)
[2024-04-24 01:52] LABS: Albumin/Globulin Ratio 0.6 (0.8-1.8); Bilirubin, Total 1.1 mg/dL (0.1-1.0); Calcium, Blood 9.3 mg/dL (8.5-10.1); Creatinine, Blood 0.47 mg/dL (0.60-1.20); Phosphorus, Blood 4.4 mg/dL (2.5-4.9); Potassium, Blood 4.4 mmol/L (3.5-5.5)
[2024-04-24 01:56] LABS: BAND PERCENT MAN 37 % (0-8); BASOPHILS PERCENT MAN 0 % (0-2); EOSINOPHILS PERCENT MAN 0 % (0-6); LYMPHOCYTES ABSOLUTE MAN 0.11 K/mm3 (0.84-5.20); LYMPHOCYTES PERCENT MAN 1 % (21-46); MONOCYTES ABSOLUTE MAN 0.44 K/mm3 (0.16-1.47); MONOCYTES PERCENT MAN 4 % (4-13); NEUTROPHILS ABSOLUTE MAN 10.46 K/mm3 (1.96-9.15); SEG NEUTROPHILS PERCENT MAN 58 % (41-73); TOTAL CELLS COUNTED 100
[2024-04-24] MEDS ORDERED: NS 1,000 ML IV SCH ×4 (02:00→09:05)
[2024-04-24] MEDS ORDERED: Ipratropium/Albuterol SulF 2.5-0.5MG/3 ML Amp INH PRN (02:45)
[2024-04-24] MEDS ORDERED: Ondansetron HCl 2 MG / ML 2ML Vial IV PRN (02:50)
[2024-04-24] MEDS ORDERED: FentaNYL Citrate 50 MCG/ML 2 ML Injection IV PRN (02:50)
[2024-04-24] MEDS ORDERED: FLU VACC TS2024-25(6MOS UP)/PF 45 MCG/0.5 ML SYRINGE IM SCH (02:50)
[2024-04-24] MEDS ORDERED: CefTRIAXone Sodium 1,000 MG in NS 100 ML IV SCH (03:11)
[2024-04-24] MEDS ORDERED: LevoFLOXacin 750 MG/D5W 150ML 150 ML IV SCH (03:14)
[2024-04-24] MEDS ORDERED: Magnesium Sulf 2 GM/Water 50ML 50 ML IV STA (03:16)
[2024-04-24 04:15] VITALS: BP 88/60
[2024-04-24] MEDS ORDERED: NS 250 ML IV PRN (06:05)
[2024-04-24 06:15] LABS: Influenza A, PCR NEGATIVE (NEGATIVE); Influenza B, PCR NEGATIVE (NEGATIVE); Resp Syncytial Virus, PCR NEGATIVE (NEGATIVE); SARS-Cov-2 (COVID-19) PCR, MMC NEGATIVE (NEGATIVE)
--- NOTE | 2024-04-24 07:53 | NUR ---
PT ARRIVED FROM ED AT 0400. PT A&Ox1-2. FLAT AFFECT AND IRRITABLE AT TIMES. RESISTANT TO CARE. PT WAS SOLIED WITH STOOL WHEN COMING TO FLOOR, CLEANED AND ATTENDS IN PLACE. MEPALEX DRESSING PLACED FOR PORTECTION ON COCCYX. PT ON 6L OF OXYGEN AND HUMIDIFER ADDED FOR COMFORT. PT UNABLE TO ANSWER MOST ADMITTING QUESTIONS. PT WOULD STARE OFF OR COMMENT, "WHY ARE YOU ASKING ME THAT". IV MED ADMINSTERED PER EMAR. DR GERMAN AT BEDSIDE TO TALK WITH PT ABOUT INTERVENTIONS AND POSSIBLE HOSPICE D/T END STAGE LUNG CANCER, DECISION TO WAIT FOR PT'S TO ARRIVE BEFORE HOSPICE PLACMENT. BED ALARM ON. BED IN LOWEST POSITION AND CALL LIGHT IN REACH.
[2024-04-24 08:00] VITALS: BP 72/56
[2024-04-24] MEDS ORDERED: MethylPREDNISolone Sod Succ 125 MG Vial IV SCH (09:00)
[2024-04-24] MEDS ORDERED: Morphine Sulfate 20 MG/1ML 1 ML Oral Syringe SL PRN (09:45)
[2024-04-24] MEDS ORDERED: Acetaminophen 650 MG Supp PR PRN (09:45)
[2024-04-24] MEDS ORDERED: Scopolamine Hydrobromide Patch TOP PRN (09:45)
[2024-04-24] MEDS ORDERED: Atropine Sulfate 1% Opth Soln 2ML BTL SL PRN (09:45)
[2024-04-24] MEDS ORDERED: LORazepam 1 MG Tab PO PRN (09:45)
--- NOTE | 2024-04-24 15:59 | NUR ---
ASSESSED PATIENT THIS AM. HE REPORTED FEELING SHORT OF BREATH. HE REPORTED THAT HE WAS SUPPOSE TO BE ADMITED TO HOSPICE THIS MORNING. WE DISCUSSED TRANSITIONING TO COMFORT CARE THIS HOSPITAL STAY TO BETTER MANAGE SYMPTOMS. HE WAS AGREEABE BUT WANTED ME TO DISCUSS WITH HIS S/O BRIGETTE. CALL PLACED AND SHE WAS AGREEABLE TO THIS PLAN. ORDERS PLACED. PC WILL CONTINUE TO FOLLOW
--- NOTE | 2024-04-24 17:16 | NUR ---
SHIFT SUMMARY; PATIENT NOW ON COMFORT CARE. HE IS ORIENTED TO SELF ONLY. FAMILY DOES COME AND SITS AT BEDSIDE FOR A FEW HOURS. PATIENT IS MEDICATED X 1 WITH ROXONAL FOR AIR HUNGER. HIS IV IS VERY POSITIONAL AND IT AGITATES PATIENT WHEN IV BEEPS FROM AN OCCLUSION. DECISION TO STOP FLUIDS. HE IS EATING AND DRINKING. TURNS Q 2 HOURS FOR PREVENTION OF SKIN BREAKDOWN. ORAL CARE DONE.
--- NOTE | 2024-04-25 08:14 | NUR ---
SHIFT SUMMARY NOC. PT ADMIT FOR ACUTE RESPIRATORY FAILURE. PT NOW ON COMFORT CARE. PT A/O TO SELF. PT UNSTEADY WITH AMBULATION BUT USED WALKER, GAIT BELT, AND VERBAL CUES. PT'S BED ALARM SET FOR SAFETY AND PT SET ALARM OFF AT TIMES DURING NIGHT. PT MEDICATED FOR PAIN X1. BED IN LOWEST POSITION, CALL LIGHT IN REACH.
[2024-04-25] MEDS ORDERED: Guaifenesin/Dextromethorphan Syrup 5 ML UDC PO PRN (09:20)
--- NOTE | 2024-04-25 14:38 | NUR ---
PT'S SIGNIFICANT OTHER, PRASANNA, IS AT THE BEDSIDE. RN DISCUSSES [facility] PLAN WITH GITA AND HER MOM. PT IS WATCHING TV, DOES NOT WANT TO BE INVOLVED IN THE CONVERSATION. GITA STATES THAT SHE AND GELY ARE CURRENTLY UNHOUSED. THEY HAVE BEEN COUCH SURFING FOR A FEW MONTHS, AND THIS PAST WEEKEND WERE STAYING AT HER SISTER'S HOUSE WHEN THEY CALLED 911 FOR SHORTNESS OF BREATH. PRASANNA STATES THAT THEY ARE UNABLE TO STAY THERE ANY LONGER. DAHIANA ELLINGTON GAVE PRASANNA THE NUMBER FOR [facility] AND ADVISED TO CALL. PT MAY NEED TO GO TO SNF AND RECEIVE HOSPICE SERVICES THERE. RN ADVISED PRASANNA TO COME ON FRIDAY AT 0800 TO DISCUSS THE SITUATION WITH CARE COORDINATION. PRASANNA WORKS AT 11:30, FRIDAY TO FRIDAY.
--- NOTE | 2024-04-25 17:40 | NUR ---
PHONE CALL TO PHYSICIAN - PT REPORTS THAT HE IS GOING THROUGH WITHDRAWLS FROM ALCOHOL. PT STATES HE NORMALLY DRINKS 8-10 BEERS PER DAY, AND THE LAST BEER HE HAD WAS PRIOR TO COMING TO THE ER ON 04/24. PT'S FACE IS FLUSHED, RESTLESS LEGS NOTED, HE STATES HE IS ANXIOUS. RN PLACED CALL TO DR. CUNHA. DR. CUNHA STATED HE WOULD PUT ORDERS IN.
[2024-04-25] MEDS ORDERED: ChlordiazePOXIDE 25 MG Cap PO PRN (18:00)
[2024-04-25] MEDS ORDERED: LORazepam 2 MG/ML 1ML Injection IV PRN (18:00)
--- NOTE | 2024-04-25 18:37 | NUR ---
GELY IS A COMFORT CARE PATIENT WITH HISTORY OF LUNG CANCER. ALSO DRINKING 8-10 BEERS PER DAY FOR A LONG TIME. HE IS ORIENTED TO SELF AND LOCATION, BUT TIME/SITUATION IS UNCERTAIN. HE IS FORGETFUL AND CAN ALSO BECOME FIXATED ON REQUESTS. HE WAS VISITED BY HIS LIFE PARTNER, KAI, AND ALSO BY HIS SON AND HIS FAMILY. 6LPM O2 VIA NC, STAND BY ASSIST TO THE BATHROOM. CONTINENT. NO IV ACCESS. BED ALARM ON FOR SAFETY. PLAN IS FOR DISCHARGE ON [facility]. HOWEVER, PT IS CURRENTLY UNHOUSED SO WAITING FOR CARE COORDINATION TO ADDRESS THAT PLAN WITH HOSPICE. DNR. BED
--- NOTE | 2024-04-25 18:42 | NUR ---
MEDICATED PER EMAR FOR PRN PAIN - ROXANOL THREE TIMES THIS SHIFT, WITH ALSO ATIVAN, AND LIBRIUM. ADDED CIWA ASSESSMENTS PRN PT COMFORT.
--- NOTE | 2024-04-25 18:54 | NUR ---
PERSONAL CARE - THIS PT REFUSED OFFERS FOR ORAL CARE.
[2024-04-25] MEDS ORDERED: LORazepam 1 MG Tab PO PRN (20:40)
[2024-04-25] MEDS ORDERED: REMERON30 M9 PO (23:24)
[2024-04-25] MEDS ORDERED: AZIT250 PO (23:24)
[2024-04-25] MEDS ORDERED: FLUTICASONE-SA1 EAC9 INH (23:27)
[2024-04-25] MEDS ORDERED: ONDA8 PO (23:27)
[2024-04-25] MEDS ORDERED: ONDA4ODT MM (23:28)
[2024-04-25] MEDS ORDERED: HYDHCL25 PO (23:29)
--- NOTE | 2024-04-26 05:14 | NUR ---
SHIFT SUMMARY NOC PT A/O TO SELF. ON COMFORT CARE. CONFUSED AND IMPULSIVE JUMPING OUT OF BED AT TIMES, BED ALARM ON FOR SAFETY. PT HAD C/O OF PAIN IN BUE 03/30 AND MEDICATED PER EMAR. PT ATIVAN CHANGED TO Q1H FOR INCREASED AGITATION/ANXIETY. PT ON 3L/NC. PT AWAITING HOSPICE PLACEMENT. PT CURRENTLY RESTING WITH BED ALARM ON, BED IN LOWEST POSITION, AND CALL LIGHT WITHIN REACH.
[2024-04-26] MEDS ORDERED: Polyethylene Glycol 3350 17 gm PO PRN (09:35)
--- NOTE | 2024-04-26 15:03 | NUR ---
SHIFT SUMMARY PT RESTING QUIETLY AT START OF SHIFT. SOON AWAKE, AGITATED AND WANTING OOB. PT ASSISTED TO STAND AT BS TO GO TO [facility]. PT STANDING STILL WITH HEAD TILTED BACK, EYES FIXED. PT NOT MOVING FOR 15 MINS. PT DOES NOT FOLLOW COMMANDS, DOES NOT KNOW WHERE HE IS OR WHAT HE NEEDS TO DO. S/O CAME TO FOR A WHILE PRIOR TO GOING TO WORK, REQUESTING TO SPEAK WITH SYNCHRONOUS MOTOR ASSEMBLER TO ARRANGE FOR HOSPICE. SYNCHRONOUS MOTOR ASSEMBLER NOTIFIED AND WENT TO TO TALK WITH S/O. PT MEDICATED PER EMAR FOR PAIN AND AGITATION. DR CUNHA ALSO TO . NEW ORDERS OBTAINED FOR BOWEL CARE S/O REPORTED PT C/O CONSTIPATION. MIRALAX GIVEN IN APPLE JUICE. PT TOLERATED WELL. PT RESTING QUIETLY AT THIS TIME. CALL LT IN REACH. BED ALARM ON FOR SAFETY.
[2024-04-26] MEDS ORDERED: Docusate Sodium 100 MG Cap PO SCH (21:00)
--- NOTE | 2024-04-27 04:30 | NUR ---
VP PURCHASING SUMMARY AT APPROXIMATELY 1950, PT HAD AN EPISODE OF SEVERE RESPIRATORY DISTRESS, WITH RESPIRATORY RATE APPROXIMATELY 50 PER MINUTE, ACCESSORY MUSCLE USE, VERY WET LUNG SOUNDS, TRIPODING, FRASER COLOR SKIN. HE WAS EXTREMELY AGITATED. HE SAID "IM DYING". WE DISCUSSED HIS MEDICINE OPTIONS AND HE WAS VERY CLEAR THAT HE WANTED MORE MEDICATION FOR HIS "MISERY". ROXANOL, LORAZEPAM AND ATROPINE DROPS UTILIZED TO GET PT COMFORTABLE WITH EXCELLENT EFFECTIVENESS. PERIPHERAL IV PLACED WITH PT CONSENT FOR IV ATIVAN AND BAÑUELOS PLACED WITH PT CONSENT FOR COMFORT. PT CONTINUES TO BE MEDICATED WHEN HE QUALIFIES, UTILIZING THE FLACC SCALE. HE HAS BECOME MORE MOTTLED, FRASER, AND NON-VERBAL THE NIGHT HAS PROGRESSED AND IS EXPERIENCING THE " RATTLE", WITH INCREASING SOUNDS OF CONGESTION IN HIS CHEST AND RATTLE SOUND IN HIS THROAT. SCOPOLAMINE PATCH APPLIED TO BEHIND HIS R EAR. HE IS NO LONGER EATING OR SPEAKING. PERICARE DONE, PT BATHED, HAIR WASHED AND COMBED, ORAL CARE DONE WITH SUCTION, CHAPSTICK APPLIED, MOUTH MOISTURIZER APPLIED INSIDE MOUTH.
--- NOTE | 2024-04-27 14:15 | NUR ---
COMFORT CARE SUPPORTIVE VISIT @ 0745 PT IS OBTUNDED. NO S/SX OF DISTRESS NOTED AT THIS TIME. PPP X4. BILAT HANDS ARE DARK AND COOL TO THE TOUCH. PT APPEARS TO HAVE STARTED TO TRANSITION TO EOL DURING THE NIGHT (PER NURSING NOTES). THIS PC RN CONCURS WITH PRIMARY RN, PT IS ACTIVELY TRANSITIONING. NOC SHIFT RN LEFT A MSG FOR PT'S LIFE PARTNER TO RETURN CALL TO PT'S PRIMARY RN FOR A STATUS UPDATE. PC TO REMAIN AVAILABLE NEEDED.
--- NOTE | 2024-04-27 14:33 | NUR ---
SUPPORTIVE VISIT FOR FAMILY @ 1015 CALLED TO ROOM BY RELIEF RN PT'S FAMILY HAD ARRIVED AND HAD QUESTIONS. THIS PC RN REVIEWED PT'S CURRENT HEALTH STATUS AND PROVIDED GENTLE EDUCATION ON EOL S/SX. PROVIDED BLUE BOOK, "GONE FROM MY SIGHT" FOR SIGNIFICANT OTHER (S.O.) FOR REVIEW. ENCOURGED S.O. TO GIVE PT PERMISSION TO LET GO. SHE SHARED PT HAS 5 CHILDREN, 2 KIDS FROM HIS TEEN YEARS. THE OTHER 3 KIDS ARE IN THE [facility] AREA AND THEY HAVE VERY LITTLE INTERACTION WITH PT. S.O. SHARES [place] IS NOT A SPIRITUAL MAN. "MY MOM IS RELIGOUS AND PREACHES AT [employer]. HE HATES IT." THIS PC RN CLARIFIED, FAMILY DOES NOT WANT A TECHNICAL INSTRUCTOR COURSE DEVELOPER TO VISIT. PT IS OBTUNDED AND NOT ABLE TO ADVOCATE FOR HIMSELF. HOME LIST PROVIDED TO Sabrina MACHUCA. UPDATES PROVIDED TO PRIMARY RN AND DOG WALKER. PC TO REMAIN AVAILABLE NEEDED.
--- NOTE | 2024-04-27 17:38 | NUR ---
SHIFT SUMMARY PT ON COMFORT CARE; UNRESPONSIVE AT START OF SHIFT. NO S/SX'S OF DISTRESS OR AGITATION TO PRESENT. PER SHIFT REPORT, PT HAD BEEN VERY AGITATED WITH COUGHING AND RESPIRATORY DISTRESS. PT MEDICATED ON NOC SHIFT, AND THEN HAS REMAINED CALM AND PEACEFUL SINCE. DR CUNHA IN TO SEE PT A COUPLE OF TIMES. NO CHANGES NOTED. MULTIPLE FAMILY AND FRIENDS IN AND OUT SINCE THIS AM. PALLIATIVE CARE IN TO SEE FAMILY A COUPLE OF TIMES. FAMILY GIVEN LIST OF HOMES IN THE AREA BY PALLIATIVE CARE NURSE. PT REPOSITIONED THRU OUT SHIFT. WILL CONTINUE TO MX.
--- NOTE | 2024-04-28 05:01 | NUR ---
MEDICAL EQUIPMENT REPAIRER SUMMARY AT START OF SHIFT PT RR 22-24, WET LUNG SOUNDS, SLIGHTLY RESTLESS. LIFE PARTNER BRIGETTE AT BEDSIDE SAYS PT WOULD WANT TO BE MORE COMFORTABLE AND BETTER MEDICATED. ROXANOL, LORAZEPAM AND ATROPINE DROPS UTILIZED WITH EXCELLENT EFFECTIVENESS AND TITRATED TO MAINTAIN PTS RESPIRATORY RATE AT 12-16 PER MINUTE. PERICARE DONE, PT BATHED, HEAR COMBED, ORAL CARE DONE WITH SUCTION, CHAPSTICK APPLIED, MOUTH MOISTURIZER APPLIED INSIDE MOUTH.
--- NOTE | 2024-04-28 15:14 | NUR ---
COMFORT CARE SUPPORTIVE VISIT PT IS OBTUNDED. MINIAMAL RESPONSE TO PAINFULL STIMULI. PT APPEARS COMFORTABLE NO S/SX OF DISTRESS NOTED. NURSING STAFF IS MANAGING PT'S EOL SYMPTOMS WELL. PT'S S.O. REPORTS FEELING WELL SUPPORTED BY MEDICAL STAFF. PRIMARY RN DENIES ANY ADDITIONAL NEEDS AT THIS TIME. COMFORT CART ORDERED. PC TO REMAIN AVAILABLE NEEDED.
--- NOTE | 2024-04-28 17:40 | NUR ---
shift summary this rn assumed care at 0700. see comfort care assessment. patient medicated for comfort as needed. life long partner at bedside majority of the day. this rn provided education, active listening and therapeutic communication to the life long partner at bedside. no acute changes throughout the shift.
--- NOTE | 2024-04-28 18:46 | NUR ---
update paraplanner called this rn into the room due to change in respirations. patient respirations and slow, irregular, and gasping. this rn called ning, life long partner, and updated her and encouraged patient to come in as the patient is in the stages of actively dying. ning on the way in.
--- NOTE | 2024-04-29 02:42 | NUR ---
COMFORT CARE PATIENT EXPECTED TIME OF 2314 ON 04/28 WITH FAMILY AT BEDSIDE. PATIENT PICKED UP BY [facility]. ALL BELONGINGS SENT HOME WITH [facility], [facility].
== END 2024-04-28 23:15 | DRG 951 ==
LOC: ER 00:40 → MEDS 00:41
PROVIDERS: Student in an Organized Health Care Education/Training Program; ADMIT Internal Medicine
DX: Z51.5 Encounter for palliative care (principal); A41.9 Sepsis, unspecified organism; J18.9 Pneumonia, unspecified organism; J96.21 Acute and chronic respiratory failure with hypoxia; R65.20 Severe sepsis without septic shock; J44.0 Chronic obstructive pulmonary disease with (acute) lower respiratory infection; E87.1 Hypo-osmolality and hyponatremia; F10.239 Alcohol dependence with withdrawal, unspecified; R64 Cachexia; Z66 Do not resuscitate; C34.90 Malignant neoplasm of unspecified part of unspecified bronchus or lung; C79.9 Secondary malignant neoplasm of unspecified site; E83.42 Hypomagnesemia; F17.210 Nicotine dependence, cigarettes, uncomplicated; K21.9 Gastro-esophageal reflux disease without esophagitis; I95.9 Hypotension, unspecified; G62.9 Polyneuropathy, unspecified; R62.7 Adult failure to thrive; K59.00 Constipation, unspecified; Z90.89 Acquired absence of other organs; Z98.890 Other specified postprocedural states; Z68.21 Body mass index [BMI] 21.0-21.9, adult; Z79.899 Other long term (current) drug therapy; Z79.51 Long term (current) use of inhaled steroids; Z88.8 Allergy status to other drugs, medicaments and biological substances; Z91.048 Other nonmedicinal substance allergy status; Z99.81 Dependence on supplemental oxygen; F41.0 Panic disorder [episodic paroxysmal anxiety]; Z86.16 Personal history of COVID-19; Z91.199 Patient's noncompliance with other medical treatment and regimen due to unspecified reason
CPT/HCPCS: 0241U; 36415; 71045; 80053; 83605; 83735; 83880; 84100; 84295; 84484; 85025; 87040; 93005; 93010; 94640; 94644; 94664; 94760; 94762; 96365; 96366; 96367; 96374; 96375; 96376; 99285-25; A9270; G0378; J0696; J1956; J2060; J2919; J3010; J3475; J7030; J7050